=== PATIENT | female | born 2000 | race Caucasian/White ===

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

== ENCOUNTER 2022-07-03 17:17 | Emergency (ER) | payer OTHER ==
[~2022-07-03] VITALS: Ht 157.5 cm; Wt 78.0 kg
[~2022-07-03 17:17] MED LIST: PREN1TAB78 MT
[2022-07-03 17:53] VITALS: BP 144/122
== END 2022-07-03 23:01 | disposition left against medical advice (07) ==
LOC: ER 17:17
DX: Z53.21 Procedure and treatment not carried out due to patient leaving prior to being seen by health care provider (principal)